=== PATIENT | male | born 1970 | race Caucasian/White ===

== ENCOUNTER 2017-09-13 12:49 | Emergency (ER) | payer SELFPAY ==
--- NOTE | 2017-09-13 14:14 | RAD ---
HISTORY: Right hand pain, trauma COMPARISONS: None VIEWS: 4, Frontal, lateral, and oblique views of the right hand FINDINGS: BONE DENSITY: Normal. BONES: There is no displaced fracture. JOINTS: There is no arthropathy. ALIGNMENT: There is no dislocation. SOFT TISSUES: Unremarkable. OTHER FINDINGS: None. IMPRESSION: NO ACUTE OSSEOUS INJURY. IF SYMPTOMS PERSIST, RECOMMEND REPEAT IMAGING.
--- NOTE | 2017-09-13 15:24 | ED ---
Upper Extremity Pain - HPI Summary HPI Summary: Rt hand dominant pt here w/ repeat injuries to Rt hand. Once 2 months ago and has had pain since. Caught his hand again Wednesday09/10/2017 in a serpentine belt (he's a weapons mechanic) and developed pain/swelling after. Tried to go back to work today but has pain in the Rt index finger and MCP joint/hand - reports "clicking " here at times. Denies numbers, tingling, weakness but has sharp pain intermittently. Worse w/ finger movements at times - wrist movements do not trigger finger/hand pain. - History of Current Complaint Chief Complaint: EDExtremityUpper Stated Complaint: RIGHT HAND INJURY Time Seen by Provider: 09/13/17 13:31 Hx Obtained From: Patient - Allergies/Home Medications Allergies/Adverse Reactions: Allergies Allergy/AdvReac Type Severity Reaction Status Date / Time No Known Allergies Allergy Verified 01/23/14 08:24 PMH/Surg Hx/FS Hx/Imm Hx Infectious Disease History: No Infectious Disease History: Denies: Traveled Outside the [place] in Last 30 Days - Social History Alcohol Use: Occasionally Substance Use Type: Reports: None Smoking Status (MU): Former Smoker Physical Exam Vital Signs On Initial Exam: Initial Vitals Temp Pulse Resp BP Pulse Ox 98.5 F 85 18 139/91 99 09/13/17 12:56 09/13/17 12:56 09/13/17 12:56 09/13/17 12:56 09/13/17 12:56 Diagnostics - Vital Signs Vital Signs Temp Pulse Resp BP Pulse Ox 09/13/17 12:56 98.5 F 85 18 139/91 99 - Laboratory Lab Statement: Any lab studies that have been ordered have been reviewed, and results considered in the medical decision making process. Course/Dx - Course Course Of Treatment: Advise rest, ice, ibuprofen, close f/u and possible OT before return to work. Pt will call to establish w/ a PCP as he does not have one but since this may take weeks/months, he will f/u w/ hand specialist first. Suspect tendon injury. - Diagnoses Provider Diagnoses: Injury of right hand Discharge - Sign-Out/Discharge Documenting (check all that apply): Discharge - Discharge Plan Condition: Stable Disposition: HOME Referrals: No Primary Care Phys,NOPCP [Primary Care Provider] - Melva Lind MD [Medical Doctor] - [facility] [place] [facility] REFERR[facility] [Outside] Additional Instructions: Suspect tendon injury of your Right hand. Rest (these includes but is not limited to gripping, squeezing, lifting, carrying, pushing, pulling, etc with your Right ahnd), ice and elevate for swelling and try topical analgesics such as biofreeze, bengay, etc. You may also take ibuprofen with food as needed for pain. It is important that you follow-up with a hand specialist LORIN - call today to schedule an appointment later this week. It is also important that you establish with a primary care provider. You may call the referral line today to establish. *If in the meantime you develop swelling that's worse than you've experience so far, numbness, tingling, weakness, return to the emergency department. - Billing Disposition and Condition Condition: STABLE Disposition: HOME
[2017-09-13 15:52] VITALS: BP 00/00
== END 2017-09-13 15:50 | disposition home or self-care (01) ==
LOC: ED 12:49
DX: S69.91XA Unspecified injury of right wrist, hand and finger(s), initial encounter (principal); W31.89XA Contact with other specified machinery, initial encounter; Y92.9 Unspecified place or not applicable; Z87.891 Personal history of nicotine dependence
CPT/HCPCS: 99281

== ENCOUNTER 2018-02-03 06:23 | Day surgery (SDC) | payer OTHER ==
[~2018-02-03 06:23] MED LIST: Buffered Lidocaine 0.9% SYRIN* 5 ML/SYR SYRINGE INTRADERM ONE; Dexamethasone IV* 4 MG/ML 1 ML (4 MG) IV SLOW PU ONE; Dexamethasone IV* 4 MG/ML 1 ML (4 MG) ONE; Famotidine IV* 10 MG/ML 2 ML (20 mg) IV ONE; Famotidine IV* 10 MG/ML 2 ML (20 mg) ONE
[2018-02-03] MEDS ORDERED: ceFAZolin 2 GM PREMIX (*) 2 GM/50 ML BAG IVPB ONE (06:38)
[2018-02-03] MEDS ORDERED: Lidocaine 2% PF * 5 ML VIAL ONE (06:59)
[2018-02-03] MEDS ORDERED: Propofol* 10 MG/ML 20 ML BTL IV PUSH ONE (06:59)
[2018-02-03] MEDS ORDERED: fentaNYL* 50 MCG/ML 2 ML VIAL (100 MCG VIAL) ONE ×3 (07:00→08:45)
[2018-02-03] MEDS ORDERED: Midazolam* 1 MG/ML 5 ML VIAL (5 MG) ONE (07:00)
[2018-02-03] MEDS ORDERED: DiMENhydriNATE IV* 50 MG/ML VIAL IV PUSH PRN (07:22)
[2018-02-03] MEDS ORDERED: fentaNYL* 50 MCG/ML 2 ML VIAL (100 MCG VIAL) IV PRN (07:22)
[2018-02-03] MEDS ORDERED: oxyCODONE/Acetamin 5/325 MG* TAB PO PRN (07:22)
[2018-02-03] MEDS ORDERED: Naloxone* 0.4 MG/ML 1 ML VIAL IV PRN (07:22)
[2018-02-03] MEDS ORDERED: HYDROcodone/ACETAMIN 5-325 MG* 1 TAB PO PRN (07:22)
[2018-02-03] MEDS ORDERED: Ketorolac INJ* 30 MG/ML 1 ML VIAL IV PRN (07:22)
[2018-02-03] MEDS ORDERED: Bupivacaine 0.5%* 50 ML VIAL ONE ×2 (07:23→07:27)
[2018-02-03] MEDS ORDERED: Ondansetron INJ* 2 MG/ML VIAL ONE (08:51)
[2018-02-03] MEDS ORDERED: Metoprolol Tartrate IV* 1 MG/ML 5 ML VIAL ONE (09:16)
[2018-02-03] MEDS ORDERED: DiMENhydriNATE IV* 50 MG/ML VIAL ONE (10:26)
[2018-02-03] MEDS ORDERED: Ketorolac INJ* 30 MG/ML 1 ML VIAL ONE (10:33)
[2018-02-03] MEDS ORDERED: HYDROcodone/ACETAMIN 5-325 MG* 1 TAB ONE (10:52)
[2018-02-03 12:15] VITALS: BP 124/76
--- NOTE | 2018-02-07 22:01 | OP ---
DATE OF OPERATION: 02/03/18 - [facility] DATE OF : 68 SURGEON: Johnny Matute MD SYSTEMS SUPPORT OFFICER: ALLEGRA Berry. An fleet administrative assistant was needed for the entirety of the procedure to aid in positioning of the arm and retraction. ANESTHESIOLOGIST: Anya Lawler MD ANESTHESIA: General. 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 OPERATIVE PROCEDURE: Right index finger metacarpophalangeal joint ulnar collateral ligament reconstruction with left palmaris longus tendon autograft. INDICATIONS: Johnny is a patient, who has been following for some time. Ultimately, we have been following him for about 5 months. The initial injury was back on 01/07/17. He has magnolia instability at the MCP joint and MRI confirms complete deficiency of the ulnar collateral ligament. I had discussed with him the risk of stiffness, the risk of instability despite doing surgery, the risk of persistent pain and discomfort, and the prolonged recovery. He understood all of this and he wished to proceed. He did not have a palmaris longus on the right, but he did have one on the left and so we decided to take the graft from there. FINDINGS: As expected. ESTIMATED BLOOD LOSS: 2 mL. COMPLICATIONS: None. DESCRIPTION OF PROCEDURE: Johnny was seen in the preoperative holding area. The correct site, side, and procedure were identified. We came back to the operating room where the arm was prepped and draped in the usual fashion. A time-out was performed. I began by making an incision over the dorsum of the right index finger MCP joint. Dissection was carried down. The interval between the EIP and EDC was extended distally to split the extensor gauthier, which was retracted out of the way. The degenerative tissue in the area where the ulnar collateral ligament should be was all excised using the Cherokee blade. Once the soft tissue in the collateral ligament recess was all excised and over the proximal aspect of the ulnar side of the proximal phalanx was all excised as well, I went ahead and took a 1.6 drill bit and placed a drill tunnel through the base of the proximal phalanx beginning at 1 to 2 o'clock and extending down to the 5 o'clock position. I then over drilled this with a 2.0 mm drill bit. I then took a 3.2 mm drill bit and created a unicortical drill bit in the center of rotation in the collateral ligament fossa of the metacarpal head. At this point, I went to the left arm and the arm was exsanguinated with the Esmarch and the tourniquet inflated to 250 mmHg. I made a 1 cm transverse incision over the distal palmaris longus tendon. The tendon was delivered up into the wound and released. I came about 8 cm proximal and made a second 1 cm transverse incision. The palmaris longus was then delivered into the more proximal wound, pulled distally and released proximally. I then incised the tendon graft longitudinally along its length to downsize it, so it would fit to my 2.0 mm tunnel. I placed a whipstitch in either end. On the ends that I would end up using, I whipstitched with 2-0 FiberWire. I then delivered the tendon graft through the bone tunnel in the base of the proximal phalanx. I then used 2 Babak needles to deliver the each end of the FiberWire suture out the radial side of the metacarpal head pulling the tendon tail into the unicortical bone tunnel in the metacarpal head. I then sized my tendon graft and cut it to length. I placed another 2-0 FiberWire whipstitch in the end of the tendon graft. I used the Babak needles in similar fashion to deliver out each tail of the 2-0 FiberWire out the radial aspect of the metacarpal head. I then pulled appropriate tension and the graft seated nicely with excellent tension into the bone tunnel in the metacarpal head. The sutures were tied off over a bony bridge over the radial aspect of the MCP joint. Once I had tension and tied off my graft, I went ahead and took a 4-0 Ethibond and sewed each limb of the graft to each other over the ulnar aspect of the MCP joint. The graft was very tight. There was excellent stability at this point, so I went ahead and irrigated out the wound. The capsule was closed with 4-0 Prolene suture. The split in the extensor tendon was closed with 4-0 Prolene suture. The skin was closed with 4-0 nylon suture. The wounds had been irrigated out. The areas were infiltrated with Marcaine. The wounds were dressed approximately and then a plaster splint was applied holding the hand in the intrinsic plus position. Tourniquet was deflated and the hand pinked up immediately. Tourniquet had been used to 250 mmHg throughout the case. He was then woken up and taken to the recovery room in stable condition. [id number]/CPS #: [id number] FERNANDO
== END 2018-02-03 11:42 | disposition home or self-care (01) ==
LOC: OREAST 06:23
PROVIDERS: ATTEND Orthopaedic Surgery Hand Surgery
DX: S63.65 Sprain of metacarpophalangeal joint of other and unspecified finger(s) (principal); X50.0XXS Overexertion from strenuous movement or load, sequela; Y92.89 Other specified places as the place of occurrence of the external cause
CPT/HCPCS: J0690; J1100; J1240; J1885; J2250; J2405; J2704; J3010; J3490

== ENCOUNTER 2018-02-08 19:21 | Emergency (ER) | payer OTHER ==
--- OUTSIDE RECORDS SUMMARY | 2018-02-08 19:38 | XMS REPORT ---
:1970 External Reference #:[id number] Author Organization [facility] Address [address] [place] [address] Phone [phone] Care Team Providers Name Role Phone Patient's Choice Primary Care Physician Unavailable Payers Type Date Identification Payment Subscriber Numbers Provider Workers Compensation Effective: Policy Number: Gerry Gonsales 09/10/2017 [id number] Herve [place] Ins Onset: 09/10/2017 Group Number: [id number] [facility] [id number] Group Name: [phone] [place] [address] PayID: [email or web address] Problems Date Description Provider Status Onset: 10/06/2017 Late effect of sprain AND/OR strain Johnny Matute MD Active without tendon injury Family History Date Family Member(s) Problem(s) Comments General Heart Disease General Cancer Social History Type Date Description Comments Lives With Spouse Occupation Currently Working ETOH Use Occasionally consumes alcohol Smoking Tobacco Use- Chewing Tobacco Exercise Type/Frequency Exercises sporadically Allergies, Adverse Reactions, Alerts Date Description Reaction Status Severity Comments 09/15/2017 NKDA active Medications Medication Date Status Form Strength Qnty SIG Indications Ordering Provider Ibuprofen 00 Active Tablets 600mg three Unknown 00 times a day No Active 09/16/19 Hx Unknown Medications 18 - 10/23/19 18 Vital Signs Date Vital Result Comment 01/25/2018 Height 68 inches 5'8" Weight 176.50 lb Heart Rate 78 /min Respiratory Rate 18 /min Pain Level 3 BMI (Body Mass Index) 26.8 kg/m2 10/22/2017 Height 68 inches 5'8" Weight 175.00 lb Heart Rate 76 /min BP Systolic 124 mmHg BP Diastolic 80 mmHg Respiratory Rate 16 /min Body Temperature 97.7 F Pain Level 5 BMI (Body Mass Index) 26.6 kg/m2 10/06/2017 Height 68 inches 5'8" Weight 175.00 lb BP Systolic 150 mmHg BP Diastolic 98 mmHg Respiratory Rate 16 /min Body Temperature 97.1 F Pain Level 4 BMI (Body Mass Index) 26.6 kg/m2 09/15/2017 Height 68 inches 5'8" Weight 175.00 lb Heart Rate 74 /min Respiratory Rate 14 /min Body Temperature 98.3 F Pain Level 5 BMI (Body Mass Index) 26.6 kg/m2 Results Description No Information Procedures Description No Information Encounters Type Date Location Provider CPT E/M Dx Office Visit 10/22/2017 [place] [address] S63.650D 9:[facility]a [facility] Office Visit 10/06/2017 [place] [address] S63.650D 8:15a [facility] S63.650S Office Visit 09/15/2017 2:30p [facility] M.D. 58155 S63.650A [facility] S63.650A S63.690A Plan of Care Future Appointment(s):02/16/2018 9:45 am - Johnny Matute MD at [facility]2018 7:30 am - Johnny Matute [facility]
--- OUTSIDE RECORDS SUMMARY | 2018-02-08 19:38 | XMS REPORT ---
:1970 External Reference #:[id number] Author Organization [facility] Address [address] [place] [address] Phone [phone] Care Team Providers Name Role Phone Patient's Choice Primary Care Physician Unavailable Payers Type Date Identification Payment Subscriber Numbers Provider Workers Compensation Effective: Policy Number: Gerry Gonsales 09/10/2017 [id number] Herve [place] Ins Onset: 09/10/2017 Group Number: [id number] [facility] [id number] Group Name: [phone] [place] [address] PayID: [email or web address] Problems Date Description Provider Status [...] Visit 10/22/2017 [place] [address] S63.650D 9:15a [facility] Office Visit 10/06/2017 [place] [address] S63.650D 8:15a [facility] S63.650S Office Visit 09/15/2017 2:30p [facility] M.D. [address] S63.650A [facility] S63.650A S63.690A Plan of Care Future Appointment(s):02/16/2018 9:45 am - Johnny Matute MD at [facility]/03/2018 7:30 am - Johnny Matute [facility] at [facility]
[2018-02-08 20:59] LABS: ABS Basophils 0.1 10^3/ul (0-0.2); ABS Eosinophils 0.1 10^3/ul (0-0.6); ABS Lymphocytes 3.6 10^3/ul (1.0-4.8); ABS Monocytes 0.8 10^3/ul (0-0.8); ABS Neutrophils 7.8 10^3/ul (1.5-7.7); ABS Nucleated RBC 0 10^3/ul; Eosinophil % 0.8 % (0-6); Hematocrit 46 % (42-52); Hemoglobin 15.7 g/dl (14.0-18.0); Lymphocyte % 28.9 % (25-47); Mean Corpuscular HGB Conc 34 g/dl (31-36); Mean Corpuscular Hemoglobin 29 pg (27-31); Mean Corpuscular Volume 85 fL (80-94); Mean Platelet Volume 7.7 um3 (7.4-10.4); Nucleated Red Blood Cells % 0.1; Platelet Count 332 10^3/ul (150-450); Red Blood Count 5.39 10^6/ul (4.00-5.40); Red Cell Distribution Width 13 % (10.5-15); White Blood Count 12.4 10^3/ul (3.5-10.8)
[2018-02-08 21:27] LABS: EGFR Non-African American 76.2 (>60)
--- NOTE | 2018-02-08 21:32 | ED ---
HPI Chest Pain - HPI Summary HPI Summary: This patient is a 47 year old M [facility] [place] family with a chief complaint of mid-sternal CP that began after a surgery that occurred 5 days ago. The patient rates the pain 5/10 in severity. Symptoms aggravated by deep breaths. Symptoms alleviated by nothing. Patient reports syncope. Patient denies SOB. Pt reports he was under general anesthesia for a surgery on R hand 5 days ago. Pt reports he had an episode of syncope on 02/06/2018, with associated loss of bowel control. He reports symptoms resolved within an hour. - History of Current Complaint Chief Complaint: EDChestWallPain Time Seen by Provider: 02/08/18 21:16 Hx Obtained From: Patient Onset/Duration: Started Days Ago, Still Present Timing: Constant Initial Severity: Moderate Current Severity: Moderate Pain Intensity: 5 Pain Scale Used: 0-10 Numeric Chest Pain Location: Mid Sternal Chest Pain Radiates: No Character: Dull/Aching Aggravating Factor(s): Deep Breaths Alleviating Factor(s): Nothing Associated Signs and Symptoms: Positive: Other: - Positive syncope. Negative: Shortness of Breath - Allergy/Home Medications Allergies/Adverse Reactions: Allergies Allergy/AdvReac Type Severity Reaction Status Date / Time No Known Allergies Allergy Verified 02/08/18 19:36 PMH/Surg Hx/FS Hx/Imm Hx Previously Healthy: No Endocrine/Hematology History: Denies: Hx Anticoagulant Therapy, Hx Blood Disorders, Hx Diabetes Cardiovascular History: Denies: Hx Hypertension, Hx Pacemaker/ICD History: Denies: Hx Renal Disease Sensory History: Reports: Hx Contacts or Glasses - readers Denies: Hx Hearing Aid Opthamlomology History: Reports: Hx Contacts or Glasses - readers Psychiatric History: Denies: Hx Panic Disorder - Cancer History Hx Chemotherapy: No - Surgical History Surgery Procedure, Year, and Place: Lt KNEE - ACL REPAIR 1984. Right forearm/ hand/wrist - 2018 Hx Anesthesia Reactions: No Infectious Disease History: No Infectious Disease History: Denies: Traveled Outside the [place] in Last 30 Days - Family History Known Family History: Positive: Other - Negative anesthesia reaction - Social History Occupation: Employed Full-time Lives: Alone Alcohol Use: Occasionally Hx Substance Use: No Substance Use Type: Reports: None Hx Tobacco Use: Yes Smoking Status (MU): Former Smoker Amount Used/How Often: occassionally chews, smoked for on andf off 10 years Review of Systems Positive: Chest Pain Negative: Shortness Of Breath Positive: Syncope All Other Systems Reviewed And Are Negative: Yes Physical Exam - Summary Physical Exam Summary: Appearance: Well-appearing, Well-nourished, lying in bed comfortably Skin: Warm, dry, no obvious rash Eyes: sclera anicteric, no conjunctival pallor ENT: mucous membranes moist, pharynx appears normal Neck: Supple, nontender Respiratory: Clear to auscultation, no signs of respiratory distress Cardiovascular: Normal S1, S2. No murmurs. Normal distal pulses in tibial and radial bilaterally. Abdomen: Soft, nontender, normal active bowel sounds present Musculoskeletal: Strength/ROM Intact. The area of indicated swelling is his xyphoid process, it is normal. Post-op changes in right hand, wrist, and forearm. Neurological: A&Ox3, awake and alert, mentation is normal, speech is fluent and appropriate Psychiatric: affect is normal, does not appear anxious or depressed Triage Information Reviewed: Yes Vital Signs On Initial Exam: Initial Vitals Temp Pulse Resp BP Pulse Ox 98.2 F 105 18 127/86 97 02/08/18 19:34 02/08/18 19:34 02/08/18 19:34 02/08/18 19:34 02/08/18 19:34 Vital Signs Reviewed: Yes Diagnostics - Vital Signs Vital Signs Temp Pulse Resp BP Pulse Ox 02/08/18 19:34 98.2 F 105 18 127/86 97 - Laboratory Lab Results: Lab Results 02/08/18 02/08/18 Range/Units 20:53 20:53 WBC 12.4 H (3.5-10.8) 10^3/ul RBC 5.39 (4.00-5.40) 10^6/ul Hgb 15.7 (14.0-18.0) g/dl Hct 46 (42-52) % MCV 85 (80-94) fL MCH 29 (27-31) pg MCHC 34 (31-36) g/dl RDW 13 (10.5-15) % Plt Count 332 (150-450) 10^3/ul MPV 7.7 (7.4-10.4) um3 Neut % (Auto) 63.2 (38-83) % Lymph % (Auto) 28.9 (25-47) % [place] % (Auto) 6.5 (0-7) % Eos % (Auto) 0.8 (0-6) % Baso % (Auto) 0.6 (0-2) % Absolute Neuts (auto) 7.8 H (1.5-7.7) 10^3/ul Absolute Lymphs (auto) 3.6 (1.0-4.8) 10^3/ul Absolute Monos (auto) 0.8 (0-0.8) 10^3/ul Absolute Eos (auto) 0.1 (0-0.6) 10^3/ul Absolute Basos (auto) 0.1 (0-0.2) 10^3/ul Absolute Nucleated RBC 0 10^3/ul Nucleated RBC % 0.1 Lactic Acid 0.8 (0.5-2.0) mmol/L Result Diagrams: 02/08/18 20:53 02/08/18 20:53 Lab Statement: Any lab studies that have been ordered have been reviewed, and results considered in the medical decision making process. - Radiology CXR Radiology Interpretation Completed By: ED Physician - CXR reveals, per ED physician, no acute disease. - CT CTA Chest CT Interpretation Completed By: Radiologist - CTA chest reveals, per radiologist , 1. No pulmonary emboli. 2. Partially visualized suspected duodenitis versus duodenal ulcer disease. ED physician has reviewed this radiology report. Chest Pain Course/Dx - Chest Pain Differential Diagnosis/HQI/PQRI: Acute [place], Angina, Chest Wall, Pulmonary Embolism - Diagnoses Provider Diagnoses: Peptic ulcer disease Discharge - Sign-Out/Discharge Documenting (check all that apply): Patient Departure - Discharge Plan Condition: Good Disposition: HOME Prescriptions: Omeprazole CAP* [Prilosec CAP* 20 MG] 20 mg PO DAILY #30 cap. Patient Education Materials: Gastritis (ED) Referrals: [facility] [Outside] Tano Gilbert DO [Doctor of Osteopathy] - No Primary Care Phys,NOPCP [Primary Care Provider] - - Billing Disposition and Condition Condition: GOOD Disposition: Home - Attestation Statements Document Initiated by Scribe: Yes Documenting Scribe: Smitha Lama Provider For Whom Scribe is Documenting (Include Credential): Brayan Stone MD Scribe Attestation: ISmitha, scribed for Brayan Stone MD on 02/09/18 at 0427. Scribe Documentation Reviewed: Yes Provider Attestation: The documentation as recorded by the scribe, Smitha aLma accurately reflects the service I personally performed and the decisions made by me, Brayan Stone MD
[2018-02-08] MEDS ORDERED: Iohexol 350* (CONTRAST) 500 ML MDV IV ONE (21:35)
[2018-02-08] MEDS ORDERED: Morphine VIAL* 4 MG/ML VIAL (1 ml vial) IV ONE (21:59)
--- NOTE | 2018-02-08 22:59 | RAD ---
EXAM: CT Angiography Chest With Intravenous Contrast CLINICAL HISTORY: 47 years old, male; Signs and symptoms; Other: Centralized lower chest pain; Additional info: Pleuritic cp after surgery, suspect pe TECHNIQUE: Axial computed tomographic angiography images of the chest with intravenous contrast using pulmonary embolism protocol. All CT scans at this facility use at least one of these dose optimization techniques: automated exposure control; mA and/or kV adjustment per patient size (includes targeted exams where dose is matched to clinical indication); or iterative reconstruction. MIP reconstructed images were created and reviewed. Coronal and sagittal reformatted images were created and reviewed. CONTRAST: 67 mL of Omni 350 administered intravenously. COMPARISON: No relevant prior studies available. FINDINGS: Pulmonary arteries: Pulmonary arteries are well opacified to the subsegmental branches. Normal caliber main pulmonary artery. No filling defects throughout the pulmonary artery tree. Aorta: The aorta demonstrates mild atherosclerotic calcification. Lungs: No pulmonary nodules, masses, or consolidations. No bronchiectasis, peribronchial thickening, or luminal defects. Pleural space: Normal. No significant effusion. No pneumothorax. Heart: Normal. No cardiomegaly. No significant pericardial effusion. No evidence of RV dysfunction. Thyroid: No thyroid nodules. Bones/joints: No fractures. No suspicious bone lesions. No dislocation. Soft tissues: Normal. Lymph nodes: Normal. No enlarged lymph nodes. Stomach and bowel: Partially visualized circumferential wall thickening of the second segment of the duodenum with mild periduodenal stranding. IMPRESSION: 1. No pulmonary emboli. 2. Partially visualized suspected duodenitis versus duodenal ulcer disease.
[2018-02-08] MEDS ORDERED: Morphine VIAL* 10 MG/ML 1 ML VIAL IV ONE (23:00)
[2018-02-08] MEDS ORDERED: Famotidine IV* 10 MG/ML 2 ML (20 mg) IV SLOW PU ONE (23:44)
[2018-02-09 00:21] VITALS: BP 131/88
--- NOTE | 2018-02-09 08:07 | RAD ---
INDICATION: Chest pain. COMPARISON: There are no prior studies available for comparison. TECHNIQUE: A portable view of the chest was obtained. FINDINGS: Cardiac and mediastinal contours appear to be within normal limits. The lungs are clear. No pleural effusion is seen. IMPRESSION: NO EVIDENCE FOR ACUTE DISEASE. R0
== END 2018-02-09 00:21 | disposition home or self-care (01) ==
LOC: ED 19:21
DX: K27.9 Peptic ulcer, site unspecified, unspecified as acute or chronic, without hemorrhage or perforation (principal); R55 Syncope and collapse; R07.2 Precordial pain; Z87.891 Personal history of nicotine dependence
CPT/HCPCS: 36415; 71045; 71275; 80053; 83605; 84484; 85025; 93005; 96374; 99283; J2270; Q9967